=== PATIENT | male | born 1950 | race Caucasian/White ===

== ENCOUNTER 2016-10-26 13:14 | Emergency (ER) | payer MEDICARE, OTHER ==
--- NOTE | 2016-10-26 13:43 | ERNOTE ---
Medical Problem HPI - Narrative Date of Service: 10/26/16 - General Chief Complaint: General Assessment Time Seen by Provider: 10/26/16 13:31 Source: patient, family, RN notes reviewed Exam Limitations: no limitations - Immun/Allergies/Home Medications Immunizations: IMMUNIZATION HX Immunizations Up to Date Yes History of Influenza Vaccine No Hx Pneumococcal Vaccination No Allergies/Adverse Reactions: Allergies No Known Allergies Allergy (Unverified 10/26/16 13:26) Home Medications: HOME MEDICATIONS NK [No Home Medication] 10/26/16 [Last Taken Unknown] - History of Present History Narrative: Jude is a 66-year-old male who presents to the emergency Department by private vehicle with his for evaluation after having a couple of episodes of confusion in the past 2 weeks. The first episode occurred while he was driving. He felt that he was confused and could not remember where he was going or what was doing. He reports this lasted about 10 minutes. The second episode occurred 3 days ago while he was at home. His reports that he was again confused and forgetful. This lasted approximately 30 minutes. The patient has no prior history of hypertension, but reports that he has had some high blood pressure readings recently and that he can tell when his blood pressure is up because he has a pounding feeling in his head. He is currently asymptomatic and his blood pressure is only mildly elevated. Review of Systems - Review of Systems Constitutional: Present: fatigue, decreased activity level. Absent: recent illness, fever, chills EYE: Absent: eye pain, vision changes ENT: Present: no symptoms reported Respiratory: Absent: shortness of breath, cough Cardiology: Absent: chest pain, palpitations, edema Gastrointestinal/Abdominal: Absent: abdominal pain, eating less, drinking less Genitourinary: Present: no symptoms reported Musculoskeletal: Absent: muscle pain, joint pain Skin: Absent: rash, lesions Neurological: Absent: headache, dizziness/light-headedness Endocrine: Absent: increased thirst, increased urine, unexplained weight loss Hematologic/Lymphatic: Absent: easy bruising, easy bleeding Psych: Absent: anxiety, depressed - Patient's Past Medical History Patient History - Medical: No pertinent hx Patient History - Cardiac/Respiratory: No pertinent hx Patient History - Cancer: No Hx of Cancer Patient History - Surgical Procedures: Cholecystectomy, T & A, Orthopedic Patient History - Other: None - Social History Living Situations: home Abuse History: No History of abuse Psych History: No pertinent hx Smoking Status: Never smoker Have you smoked in the past 12 months: No Do you dip or chew tobacco: No Alcohol Use: none Drug Use: none - Immunizations Immunizations Up to Date: Yes Hx Pneumococcal Vaccination: No History of Influenza Vaccine: No Physical Exam - Physical Exam General Appearance: Present: wd/wn, alert, no apparent distress Head Exam: Present: normal inspection, no evidence of injury Eye Exam: Normal inspection: bilateral, PERRL: bilateral, EOMI: bilateral Ears, Nose, Throat: Present: normal ENT inspection Neck: Present: normal inspection, nontender, supple Respiratory: Present: no respiratory distress, normal breath sounds, no accessory muscle use, lungs clear Cardiovascular/Chest: Present: regular rate, rhythm, no murmur Extremity Exam: Present: normal inspection, no edema Neurological Exam: Present: alert, oriented, normal mood/affect, no motor/ sensory deficits Skin Exam: Present: normal color, warm/dry ED Progress - Results and Orders Patient's Lab Results:: I have reviewed the patient's lab results. - Vital Signs Patient's Vital Signs:: I have reviewed the patient's vital signs. Vital Signs: Vital Signs 10/26/16 13:23 Temperature 36.6 C Pulse Rate 61 Respiratory 17 Rate Blood Pressure 142/76 O2 Sat by Pulse 95 Oximetry - EKG EKG: NSR EKG read: Reviewed by me - CT/Ultrasound CT/Ultrasound Narrative: CT of head shows no acute intracranial process - Progress/Reassessment Chief Complaint: General Assessment Progress:: Unchanged Plan - Plan Plan: Although today's workup was unremarkable, the patient and I discussed the need for him to have follow-up for further evaluation as it sounds as though he may be having transient ischemic attacks. Also discussed returning to the emergency department for evaluation immediately if he begins having symptoms again. The patient and his were in agreement with the plan. Departure - Departure Clinical Impression: Transient alteration of awareness Disposition: Home Follow Up Needed Condition: Stable Instructions: Transient Ischemic Attack, [id number] Additional Instructions: Schedule a follow up appointment with your local doctor Return to ER if symptoms return
[2016-10-26 13:53] LABS: Hematocrit 43.6 % (42.0-52.0); Mean Corpuscular Hemoglobin 28.6 pg (27-31); Mean Corpuscular Hgb Conc 34.4 g/dl (32-36); Neutrophil # 4.9 K/mm3 (1.3-6.0); Neutrophil % 65.3 % (42-75.0); Platelet Count 206 K/mm3 (150-450); Red Blood Count 5.25 M/mm3 (4.7-6.0); Red Cell Distribution Width 12.9 % (11.5-14.0); White Blood Count 7.5 K/mm3 (4.0-10.5)
[2016-10-26 13:58] VITALS: BP 141/73
[2016-10-26 14:05] LABS: Anion Gap 10.3 mmol/L (6.8-13.8); BUN/Creatinine Ratio 23.5 (9.0-21.6); Ca. Corrected For Albumin 8.3 mg/dL (8.4-10.2); Calcium * 8.6 mg/dL (7.9-10.9); Carbon Dioxide 31.9 mmol/L (24-32.6); Potassium 4.2 mmol/L (3.4-4.6); Total Protein 6.8 gm/dL (6.2-8.2)
== END 2016-10-26 14:41 | disposition home or self-care (01) ==
LOC: ER 13:14
DX: R40.4 Transient alteration of awareness (principal)